=== PATIENT | female | born 1985 | race Caucasian/White ===

== ENCOUNTER 2023-12-12 12:35 | Outpatient (REF) | payer OTHER, SELFPAY ==
--- NOTE | ~2023-12-12 | XR_ITS ---
EXAMINATION: XR LUMBOSACRAL SPINE WITH OBLIQUES CLINICAL INFORMATION: Ankylosing spondylitis. COMPARISON: Portions of the MRI lumbar spine dated 11/02/2016; lumbar spine radiographs dated 10/09/2016. TECHNIQUE: AP, both oblique, and lateral views of the lumbar spine. Lateral view of the lumbosacral junction. FINDINGS: The vertebral bodies and posterior elements are normal. The disc spaces are preserved and the vertebral alignment is normal. There is multi-level mild lower thoracic spondylosis. The paraspinal soft tissues are normal. XR/XR lumbar spine 4V min IMPRESSION: 1. Unremarkable appearance of the lumbar spine. 2. There is multi-level mild lower thoracic spondylosis.
== END 2023-12-12 12:36 | disposition home or self-care (01) ==
LOC: HO.XRAY 12:35
PROVIDERS: PCP Internal Medicine; Visit Provider Psychiatry & Neurology Neurology
DX: M45.9 Ankylosing spondylitis of unspecified sites in spine (principal)
CPT/HCPCS: 72110